=== PATIENT | female | born 1980 | race Caucasian/White ===

== ENCOUNTER 2019-02-02 20:48 | Emergency (ER) | payer OTHER ==
[2019-02-02] MEDS ORDERED: DIPHTH,PERTUSS(ACELL),TET 0.5 ML DISP.SYRIN IM ONE ×2 (20:53→21:19)
--- NOTE | 2019-02-02 20:55 | PDOC ---
Rapid Medical Evaluation Time Seen by Provider: 02/02/19 20:52 Medical Evaluation: 02/02/19 20:53 Pt c/o: rt knee lac, running up escalator in opp direction, unknown last tdap Pt on brief exam: noted deep horizontal lac to rt knee Pt ordered for: tdap and knee xray Pt to proceed to the ED Discharge Disposition - Diagnosis Knee laceration - Referrals - Patient Instructions - Post Discharge Activity
[2019-02-02 20:56] VITALS: BP 126/87; TEMP 98.5; BMI 40.7
--- NOTE | 2019-02-02 21:04 | PDOC ---
History of Present Illness - General Chief Complaint: Injury Stated Complaint: FALL Time Seen by Provider: 02/02/19 20:52 History Source: Patient - History of Present Illness Occurred: reports: just prior to arrival Lower Extremity Pain Location: right: knee Method of Injury: Yes: fell Past History - Past Medical History Allergies/Adverse Reactions: Allergies Allergy/AdvReac Type Severity Reaction Status Date / Time No Known Allergies Allergy Verified 02/02/19 20:56 Home Medications: Ambulatory Orders NK [No Known Home Medication] 02/02/19 COPD: No - Psycho Social/Smoking Cessation Hx Smoking History: Never smoked Hx Alcohol Use: Yes (socially) Drug/Substance Use Hx: No Review of Systems - Review of Systems Musculoskeletal: Yes: Joint Pain, Joint Swelling *Physical Exam - Vital Signs Last Vital Signs Temp Pulse Resp BP Pulse Ox 98.5 F 118 H 19 126/87 97 02/02/19 20:53 02/02/19 20:53 02/02/19 20:53 02/02/19 20:53 02/02/19 20:53 - Physical Exam General Appearance: Yes: Appropriately Dressed. No: Apparent Distress HEENT: positive: Normal Voice Respiratory/Chest: negative: Respiratory Distress Extremity: positive: Other (~3cm linear deep lac w/ connective tissue exposed to anterior R knee, no joint deformity otherwise) Integumentary: positive: Dry, Warm Neurologic: positive: Fully Oriented, Alert, Normal Mood/Affect Procedures - Laceration/Wound Repair Right Knee Wound Length: 2.6 to 5.0 cm Wound's Depth, Shape: linear Irrigated w/ Saline: Yes Betadine Prep: Yes Anesthesia: 1% Lidocaine (10), 1% Lidocaine w/ Epi Wound Repaired With: Sutures Suture Size/Type: 4:0 (9), nylon Number of Sutures: 9 Sterile Dressing Applied: Yes Medical Decision Making - Medical Decision Making 02/02/19 21:03 39 yo F, no sig hx, here w/ R knee injury after running up elevator in opposite direction tonight. Able to bear weight. Needs tetanus. No other injuries See exam Knee laceration s/p fall -XR neg for fx -Tetanus updated -Lac repaired by ED resident w/ myself at bedside (9, interrupted 4 0 nylon) -Dc w/ wound check as needed in 48 hrs Discharge - Discharge Information Problems reviewed: Yes Clinical Impression/Diagnosis: Knee laceration Qualifiers: Encounter type: initial encounter Laterality: right Qualified Code(s): S81.011A - Laceration without foreign body, right knee, initial encounter Condition: Good Disposition: HOME - Follow up/Referral - Patient Discharge Instructions Patient Printed Discharge Instructions: DI for Laceration Repair Additional Instructions: Keep dressing in place for at least 24 hours after which one can be opened to air. You can gently cleaned wound with mild soap and water after 24 hours to prevent crusting over the suture knots. You can also apply an antibiotic ointment twice a day until sutures are removed. Return for redness, discharge or fever Sutures are removed in 8-10 days - Post Discharge Activity
[2019-02-02 22:24] VITALS: PULSE 86
== END 2019-02-02 22:33 | disposition home or self-care (01) ==
LOC: JERFT 20:48
PROC: 3E0234Z Introduction of Serum, Toxoid and Vaccine into Muscle, Percutaneous Approach (ICD-10-PCS; principal; 2019-02-02)
PROC: 0JQN0ZZ Repair Right Lower Leg Subcutaneous Tissue and Fascia, Open Approach (ICD-10-PCS; 2019-02-02)
DX: S81.011A Laceration without foreign body, right knee, initial encounter (principal); W10.0XXA Fall (on)(from) escalator, initial encounter; Y93.89 Activity, other specified; Y92.89 Other specified places as the place of occurrence of the external cause; Y99.8 Other external cause status
CPT/HCPCS: 73562-TC-RT-FY; 90715; 99283-25